=== PATIENT | female | born 1940 | race Caucasian/White ===

== ENCOUNTER 2017-07-04 19:17 | Emergency (ER) | payer OTHER ==
[2017-07-04 21:03] LABS: BASOPHIL % 1.6 % (0-2); PLATELET COUNT 230 x10^3mcL (130-400)
[2017-07-04 21:13] LABS: RED CELL DISTRIBUTION WIDTH 20.5 % (11.5-14.5)
[2017-07-04 21:27] LABS: CALCIUM 9.7 mg/dL (8.5-10.1); CARBON DIOXIDE 28.1 mmol/L (21-32); CHLORIDE SERUM 103 mmol/L (98-107); GLUCOSE SERUM 103 mg/dL (74-106); POTASSIUM SERUM 3.6 mmol/L (3.5-5.1); SODIUM SERUM 139 mmol/L (136-145); rbc morphology (normal/abnorm) ABNORMAL (NORMAL)
[2017-07-04 23:04] VITALS: BP 135/82
== END 2017-07-04 23:04 | disposition home or self-care (01) ==
LOC: ED 19:17
PROVIDERS: Emergency Medicine
DX: I82.432 Acute embolism and thrombosis of left popliteal vein (principal); I10 Essential (primary) hypertension; E78.00 Pure hypercholesterolemia, unspecified
CPT/HCPCS: 36415

== ENCOUNTER → 2017-07-04 | Outpatient (CLI) | payer OTHER | END | disposition home or self-care (01) | LOC: US 07-01 15:30 | PROC: B54CZZZ Ultrasonography of Left Lower Extremity Veins (ICD-10-PCS; principal; 2017-07-04) | DX: M79.89 Other specified soft tissue disorders (principal) ==